=== PATIENT | female | born 1950 | race Two or more races ===

== ENCOUNTER 2025-02-08 09:38 | Inpatient (IN) | payer OTHER ==
[~2025-02-08] VITALS: Ht 154.9 cm; Wt 54.4 kg
[~2025-02-08 09:38] MED LIST: HYOSCYAMINE0.125 M1 SL; INTESTINEX680 M1 PO; LOSARTAN POTAS100 MG PO; NORVASC2.5 M1 PO; PRAVASTATIN SOD40 MG PO; SINGULAIR10 MG PO; TOPROL XL50 M1 PO
--- NOTE | 2025-02-08 10:59 | NUR ---
PTE ALERTA Y OREINTADA X3 REFIERE QUE RILEY VOMITOS FRECUENTES DESDE LA MADRUGADA DE HOY. SE SIENTE DEBIL Y DOLOR EN LA BOCA DEL [place]. SE MIDEN S/V LOS MISMOS EN PARAMETROS NORMALES.
[2025-02-08] MEDS ORDERED: ONDANSETRON HCL 2 MG/ML VIAL IV STA (11:15)
[2025-02-08] MEDS ORDERED: 0.9 % SODIUM CHLORIDE 1,000 ML IV SCH ×2 (11:15→18:30)
[2025-02-08] MEDS ORDERED: ONDANSETRON HCL 2 MG/ML VIAL ONE ×2 (11:25→23:13)
[2025-02-08 11:51] LABS: BASO % 0.7 % (0.1-1.2); EOS # 0.71 (0.04-0.54); EOS % 4.8 % (0.7-7.0); LYMPH # 1.41 (1.18-3.74); LYMPH % 9.5 % (19.3-53.1); MEAN PLATELET VOLUME 8.70 fl (9.4-12.4); MONO # 1.13 (0.24-0.82); MONO % 7.6 % (4.7-12.5); NEUT # 11.31 (1.56-6.13); NEUT % 75.8 % (34.0-71.1); RED CELL DISTRIBUTION WIDTH 14.1 % (11.6-14.4)
--- NOTE | 2025-02-08 11:59 | NUR ---
PACIENTE EVALUADA POR DR VERONICA. SE ORIENTA A PACIENTE SOBRE TRATAMIENTO MEDICO, REFIERE ENTENDER. SE COLECTAN MUESTRAS DE LABORATORIO Y SE CANALIZA BAJO MEDIDAS ASEPTICAS. SE ADMINISTRAN MEDICAMENTOS BRANDY ORDEN MEDICA. SE NOTIFICA CT.
[2025-02-08 12:14] LABS: BUN CREA RATIO 18.0 (7.0-25.0); CREATININE SERUM 0.79 mg/dL (0.55-1.02); GFR 71.54; GLUCOSE FASTING 116.0 mg/dL (65-100); OSMOLALITY SERUM 281.0 MOSM/KG (275-295)
[2025-02-08 14:24] LABS: URINE APPEARANCE Clear; URINE BILIRRUBIN Negative (NEGATIVE); URINE BLOOD Negative; URINE COLOR Yellow; URINE GLUCOSE Negative (NEGATIVE); URINE KETONE 15 (NEGATIVE); URINE LEUKOCYTE Negative; URINE NITRATE Negative; URINE PROTEIN Trace (NEGATIVE); URINE UROBILINOGEN 0.2 E.U./dl
[2025-02-08 14:27] LABS: URINE BACTERIA 568.8 uL (0.0-1933); URINE EPITHELIAL CELLS 21.3 uL (0.0-38.8); URINE RBC 20.9 uL (0.0-20.8); URINE WBC 13.6 uL (0.0-23.2)
[2025-02-08 14:35] LABS: URINE CAST 0.58 uL (0.0-1.40)
[2025-02-08] MEDS ORDERED: KETOROLAC TROMETHAMINE 30 MG VIAL IV ONE (15:45)
[2025-02-08] MEDS ORDERED: KETOROLAC TROMETHAMINE 30 MG VIAL ONE (15:57)
[2025-02-08] MEDS ORDERED: PIPERACILLIN/TAZOBACTAM SODIUM 3.375 GM VIAL IV ONE ×3 (17:45→23:13)
[2025-02-08] MEDS ORDERED: ACETAMINOPHEN 500 MG GEL..CAP PO PRN (18:30)
[2025-02-08] MEDS ORDERED: MORPHINE SULFATE 2 MG/ML CARTRIDGE IV PRN ×2 (18:30→20:22)
[2025-02-08] MEDS ORDERED: ONDANSETRON HCL 4 MG in 0.9 % SODIUM CHLORIDE 50 ML IV ONE (18:30)
[2025-02-08] MEDS ORDERED: ENALAPRILAT DIHYDRATE 1.25 MG/ML VIAL IV PRN (18:30)
[2025-02-08] MEDS ORDERED: ONDANSETRON HCL 4 MG in 0.9 % SODIUM CHLORIDE 50 ML IV PRN (18:30)
[2025-02-08] MEDS ORDERED: PANTOPRAZOLE SODIUM 40 MG/VIAL VIAL IV SCH (20:21)
[2025-02-08] MEDS ORDERED: MORPHINE SULFATE 4 MG/ML CARTRIDGE IV ONE (21:30)
[2025-02-08 23:51] VITALS: BP 101/61
[2025-02-09] MEDS ORDERED: PIPERACILLIN/TAZOBACTAM SODIUM 3.375 GM in DEXTROSE 5 % IN WATER 100 ML IV SCH
[2025-02-09 07:17] LABS: INR 1.0
[2025-02-09 08:00] VITALS: BP 100/60; O2SAT 95
[2025-02-09] MEDS ORDERED: ENOXAPARIN SODIUM 40 MG/0.4 ML SYRINGE SUBCUTANEO SCH (09:00)
[2025-02-09] MEDS ORDERED: PANTOPRAZOLE SODIUM 80 MG in 0.9 % SODIUM CHLORIDE 100 ML IV SCH (15:00)
[2025-02-09] MEDS ORDERED: ENALAPRILAT DIHYDRATE 1.25 MG/ML VIAL IV PRN (15:15)
[2025-02-09] MEDS ORDERED: HYOSCYAMINE SULFATE 0.125 MG TAB.SUBL SL PRN (15:15)
[2025-02-09] MEDS ORDERED: AA 4.25%/CAL/LYTES/DEXT 5% 1,000 ML PERIFERAL SCH (17:00)
[2025-02-09 17:03] VITALS: BP 115/76; O2SAT 95
[2025-02-10 00:49] VITALS: BP 122/77; O2SAT 96
[2025-02-10 07:08] LABS: BASO % 0.6 % (0.1-1.2); EOS # 0.47 (0.04-0.54); EOS % 3.4 % (0.7-7.0); LYMPH # 1.40 (1.18-3.74); LYMPH % 10.0 % (19.3-53.1); MEAN PLATELET VOLUME 9.30 fl (9.4-12.4); MONO # 1.08 (0.24-0.82); MONO % 7.7 % (4.7-12.5); NEUT # 10.82 (1.56-6.13); NEUT % 77.3 % (34.0-71.1); RED CELL DISTRIBUTION WIDTH 14.5 % (11.6-14.4)
[2025-02-10 07:53] LABS: ALT/SGPT 101.0 U/L (12-78); AST/SGOT 59.0 U/L (15-37); BILIRUBIN TOTAL 0.43 mg/dL (0.3-1.2); BUN CREA RATIO 28.0 (7.0-25.0); CREATININE SERUM 0.57 mg/dL (0.55-1.02); GFR 104.26; GLOBULINA 2.9 G/DL (2.4-3.5); GLUCOSE FASTING 102.0 mg/dL (65-100); OSMOLALITY SERUM 284.0 MOSM/KG (275-295)
[2025-02-10 08:00] VITALS: BP 134/74; O2SAT 97
[2025-02-10] MEDS ORDERED: METOPROLOL SUCCINATE 50 MG TAB.SR.24H PO SCH (09:00)
[2025-02-10] MEDS ORDERED: Cyanocobalamin/Mecobalamin 1 TAB.SL SL NR (12:00)
[2025-02-10] MEDS ORDERED: SOD FERRIC GLUC COMPLX/SUCROSE 62.5 MG in 0.9 % SODIUM CHLORIDE 50 ML IV NR (12:00)
[2025-02-10] MEDS ORDERED: POTASSIUM PHOS,M-BASIC-D-BASIC 3 MM/ML VIAL IV NR (13:15)
[2025-02-10 15:30] VITALS: BP 133/78; O2SAT 97
[2025-02-11 08:00] VITALS: BP 134/70; O2SAT 97
[2025-02-11] MEDS ORDERED: SOD FERRIC GLUC COMPLX/SUCROSE 62.5 MG in 0.9 % SODIUM CHLORIDE 50 ML IV SCH (09:00)
[2025-02-11] MEDS ORDERED: Cyanocobalamin/Mecobalamin 1 TAB.SL SL SCH (09:00)
[2025-02-11 16:53] VITALS: BP 129/77; O2SAT 95
[2025-02-12 01:22] VITALS: BP 132/75; O2SAT 98
[2025-02-12] MEDS ORDERED: DEXTROSE 5%-WATER 100ML IV.SOLN ONE (02:42)
[2025-02-12 12:10] LABS: BASO % 0.8 % (0.1-1.2); EOS # 0.68 (0.04-0.54); EOS % 5.2 % (0.7-7.0); LYMPH # 1.29 (1.18-3.74); LYMPH % 9.8 % (19.3-53.1); MEAN PLATELET VOLUME 9.50 fl (9.4-12.4); MONO # 1.14 (0.24-0.82); MONO % 8.6 % (4.7-12.5); NEUT # 9.68 (1.56-6.13); NEUT % 73.3 % (34.0-71.1); RED CELL DISTRIBUTION WIDTH 14.6 % (11.6-14.4)
[2025-02-12 13:13] LABS: ALT/SGPT 77.0 U/L (12-78); AST/SGOT 58.0 U/L (15-37); BILIRUBIN TOTAL 0.45 mg/dL (0.3-1.2); BILIRUBIN,CONJUGATED 0.19 mg/dL (0.0-0.2); BUN CREA RATIO 22.0 (7.0-25.0); CREATININE SERUM 0.46 mg/dL (0.55-1.02); GFR 133.53; GLUCOSE FASTING 94.0 mg/dL (65-100); OSMOLALITY SERUM 274.0 MOSM/KG (275-295)
[2025-02-12 16:00] VITALS: BP 128/54; O2SAT 97
[2025-02-13 00:59] VITALS: BP 127/70; O2SAT 97
[2025-02-13] MEDS ORDERED: PANTOPRAZOLE SODIUM 40 MG/VIAL VIAL IV SCH (04:30)
[2025-02-13] MEDS ORDERED: PANTOPRAZOLE SODIUM 80 MG in 0.9 % SODIUM CHLORIDE 100 ML IV SCH (07:45)
[2025-02-13 08:00] VITALS: BP 150/79; O2SAT 97
[2025-02-13] MEDS ORDERED: SODIUM CL 0.9% 100 ML IV.SOLN IV ONE (12:29)
[2025-02-13 16:21] VITALS: BP 146/77; O2SAT 98
[2025-02-13] MEDS ORDERED: PIPERACILLIN/TAZOBACTAM SODIUM 3.375 GM VIAL IV ONE (23:30)
[2025-02-14] VITALS: BP 107/66; O2SAT 98
[2025-02-14 08:00] VITALS: BP 145/75; O2SAT 98
[2025-02-14] MEDS ORDERED: LOSARTAN POTASSIUM 100 MG TABLET PO SCH (09:00)
[2025-02-14] MEDS ORDERED: AMLODIPINE BESYLATE 2.5 MG TABLET PO SCH (09:00)
[2025-02-14 16:00] VITALS: BP 128/75; O2SAT 97
[2025-02-14 23:52] VITALS: BP 120/75; O2SAT 96
[2025-02-15 08:00] VITALS: BP 124/70; O2SAT 96
[2025-02-15 11:50] LABS: BUN CREA RATIO 20.0 (7.0-25.0); CREATININE SERUM 0.56 mg/dL (0.55-1.02); GFR 106.41; GLUCOSE FASTING 75.0 mg/dL (65-100); OSMOLALITY SERUM 277.0 MOSM/KG (275-295)
[2025-02-15 16:18] VITALS: BP 133/76; O2SAT 96
[2025-02-16 01:42] VITALS: BP 116/72; O2SAT 95
[2025-02-16 06:55] LABS: INR 1.42
[2025-02-16 07:08] LABS: ALT/SGPT 188.0 U/L (12-78); AST/SGOT 115.0 U/L (15-37); BILIRUBIN TOTAL 0.5 mg/dL (0.3-1.2); BILIRUBIN,CONJUGATED 0.17 mg/dL (0.0-0.2); BUN CREA RATIO 23.0 (7.0-25.0); CREATININE SERUM 0.53 mg/dL (0.55-1.02); GFR 113.39; GLOBULINA 2.7 G/DL (2.4-3.5); GLUCOSE FASTING 92.0 mg/dL (65-100); OSMOLALITY SERUM 275.0 MOSM/KG (275-295)
[2025-02-16 08:36] LABS: UREA CLEARANCE 20.7 ML/MIN
[2025-02-16 12:35] VITALS: BP 119/74; O2SAT 96
[2025-02-16 13:57] LABS: BASO % 1.2 % (0.1-1.2); EOS # 0.99 (0.04-0.54); EOS % 10.1 % (0.7-7.0); LYMPH # 1.42 (1.18-3.74); LYMPH % 14.4 % (19.3-53.1); MEAN PLATELET VOLUME 9.40 fl (9.4-12.4); MONO # 1.17 (0.24-0.82); MONO % 11.9 % (4.7-12.5); NEUT # 6.05 (1.56-6.13); NEUT % 61.4 % (34.0-71.1); RED CELL DISTRIBUTION WIDTH 15.9 % (11.6-14.4)
[2025-02-16] MEDS ORDERED: PIPERACILLIN/TAZOBACTAM SODIUM 3.375 GM in 0.9 % SODIUM CHLORIDE 100 ML IV SCH (18:00)
[2025-02-16] MEDS ORDERED: FAMOTIDINE/PF 20 MG/2 ML VIAL IV SCH (21:00)
[2025-02-17 03:43] VITALS: BP 125/77; O2SAT 97
[2025-02-17] MEDS ORDERED: PANTOPRAZOLE SODIUM 40 MG/VIAL VIAL IV SCH (06:00)
[2025-02-17 08:00] VITALS: BP 128/77; O2SAT 97
[2025-02-17] MEDS ORDERED: LACTOBACILLUS ACIDOPHILUS 1 CAP CAP PO NR (11:00)
[2025-02-17 16:04] VITALS: BP 130/77; O2SAT 95
[2025-02-17] MEDS ORDERED: LACTOBACILLUS ACIDOPHILUS 1 CAP CAP PO SCH (17:00)
[2025-02-18] VITALS: BP 122/75; O2SAT 95
[2025-02-18] MEDS ORDERED: DIATRIZOATE MEGLUMINE, SODIUM 30 ML BOTTLE PO NR (06:15)
[2025-02-18 08:00] VITALS: BP 127/87; O2SAT 95
[2025-02-18] MEDS ORDERED: METHYLPREDNISOLONE SOD SUCC 40 MG VIAL IV NR (09:45)
[2025-02-18] MEDS ORDERED: DIPHENHYDRAMINE HCL 50 MG/ML VIAL 1ML IV NR (09:45)
[2025-02-18 16:00] VITALS: BP 112/73; O2SAT 96
[2025-02-19 00:20] VITALS: BP 114/72; O2SAT 96
[2025-02-19 07:06] LABS: BASO % 1.4 % (0.1-1.2); EOS # 0.38 (0.04-0.54); EOS % 3.7 % (0.7-7.0); LYMPH # 1.60 (1.18-3.74); LYMPH % 15.7 % (19.3-53.1); MEAN PLATELET VOLUME 9.20 fl (9.4-12.4); MONO # 1.26 (0.24-0.82); NEUT # 6.77 (1.56-6.13); NEUT % 66.3 % (34.0-71.1); RED CELL DISTRIBUTION WIDTH 16.3 % (11.6-14.4)
[2025-02-19 07:10] LABS: MONO % 12.3 % (4.7-12.5)
[2025-02-19 07:40] LABS: ALT/SGPT 230 U/L (12-78); AST/SGOT 124 U/L (15-37); BILIRUBIN TOTAL 0.52 mg/dL (0.3-1.2); BILIRUBIN,CONJUGATED 0.17 mg/dL (0.0-0.2); BUN CREA RATIO 22 (7.0-25.0); CREATININE SERUM 0.76 mg/dL (0.55-1.02); GFR 74.81; GLUCOSE FASTING 87 mg/dL (65-100); OSMOLALITY SERUM 280 MOSM/KG (275-295)
[2025-02-19 08:06] VITALS: BP 123/75; O2SAT 97
[2025-02-19 15:30] VITALS: BP 104/66; O2SAT 96
[2025-02-20 01:23] VITALS: BP 110/64; O2SAT 96
[2025-02-20 08:00] VITALS: BP 123/74; O2SAT 95
[2025-02-20] MEDS ORDERED: CHOLESTYRAMINE/ASPARTAME LIGHT 4 G/PKT PACKET PO STA (11:02)
[2025-02-20 17:49] VITALS: BP 119/75; O2SAT 98
[2025-02-20] MEDS ORDERED: INTESTINEX680 M1 PO (18:06)
[2025-02-20] MEDS ORDERED: CARAFATE1 GM PO (18:06)
[2025-02-20] MEDS ORDERED: PROTONIX40 MG PO (18:06)
[2025-02-20] MEDS ORDERED: QUESTRAN PACKET4 GM PO (18:07)
[2025-02-21] MEDS ORDERED: PANTOPRAZOLE SODIUM 40 MG TABLET.DR PO SCH (06:00)
== END 2025-02-20 19:48 | disposition home or self-care (01) | DRG 392 ==
LOC: ER 09:40 → SURG 18:49
PROVIDERS: Emergency Medicine; General Practice; Internal Medicine; Internal Medicine Infectious Disease; ADMIT Internal Medicine Geriatric Medicine; ATTEND Internal Medicine Geriatric Medicine
PROC: BW21YZZ Computerized Tomography (CT Scan) of Abdomen and Pelvis using Other Contrast (ICD-10-PCS; 2025-02-08)
PROC: 02HV33Z Insertion of Infusion Device into Superior Vena Cava, Percutaneous Approach (ICD-10-PCS; principal; 2025-02-12)
PROC: BW21YZZ Computerized Tomography (CT Scan) of Abdomen and Pelvis using Other Contrast (ICD-10-PCS; 2025-02-18)
DX: K52.9 Noninfective gastroenteritis and colitis, unspecified (principal); K56.7 Ileus, unspecified; D64.9 Anemia, unspecified; K21.9 Gastro-esophageal reflux disease without esophagitis; I10 Essential (primary) hypertension; E78.5 Hyperlipidemia, unspecified